=== PATIENT | male | born 1980 | race Caucasian/White ===

== ENCOUNTER 2020-10-21 19:45 | Emergency (ER) | payer MEDICAID ==
--- NOTE | 2020-10-21 19:52 | EDM.PDOC ---
ED HPI GENERAL MEDICAL PROBLEM - General Chief Complaint: Upper Extremity Injury/Pain Stated Complaint: LACERATION Time Seen by Provider: 10/21/20 19:52 Source of Information: Reports: Patient History Limitations: Reports: No Limitations - History of Present Illness INITIAL COMMENTS - FREE TEXT/NARRATIVE: Working on his stove removing the door when the hinge with it spring retainer came out causing laceration to the base of the right thumb and thenar web. Bleeding at that time controlled with direct pressure. Denies any other involvement and is up-to-date on tetanus status. Onset: Today, Sudden Duration: Minutes: Right Hand Pain Score (Numeric/FACES): 4 - Related Data Allergies Allergy/AdvReac Type Severity Reaction Status Date / Time No Known Drug Allergies Allergy Other Verified 10/21/20 19:51 Home Meds: Home Meds . [No Known Home Meds] 10/21/20 [History] Past Medical History - Past Health History Medical/Surgical History: Denies Medical/Surgical History (General issues with a laceration of the finger 5 years ago) Social & Family History - Family History Family Medical History: No Pertinent Family History ED ROS GENERAL - Review of Systems Review Of Systems: Comprehensive ROS is negative, except as noted in HPI. ED EXAM, GENERAL - Physical Exam Exam: See Below Free Text/Narrative:: Alert, oriented no acute distress. There is no cyanosis nor pallor. Respiratory status is clear with no auscultated abnormalities. Cardiac is regular radial pulse correlates. Dressing is been placed with Coban in a [id number] fashion to the right thumb. This is removed showing a 1 cm laceration in the thenar web with no active bleeding and no tendon involvement. He is able to move his thumb in in opposition lateral medial posterior anterior as well as in circular fashion with no discomfort nor disruption of continuity. CMS is intact. Discuss lidocaine application by infiltration and suturing to which he agrees ED GENERAL MEDICAL PROCEDURES - Laceration/Wound Repair Right Proximal Digit - 1st (Thumb) Lac/wound length in cm: 1 Appearance: Subcutaneous, Clean Distal NVT: Neuro & Vascular Intact, No Tendon Injury Anesthetic Type: Local Local Anesthesia - Lidocaine (Xylocaine): 2% with EPI Local Anesthetic Volume: 2cc Skin Prep: Chlorhexidine (Hibiciens) Exploration/Debridement/Repair: Wound Explored, In a Bloodless Field, Explored to Base Suture Size: 4-0 # of Sutures: 4 Suture Type: Nylon Sterile Dressing Applied: Provider Course - Vital Signs Last Recorded V/S: Last Vital Signs Temp 98.2 F 10/21/20 19:56 Pulse 96 10/21/20 19:56 Resp 18 10/21/20 19:56 BP 134/90 10/21/20 19:56 Pulse Ox 96 10/21/20 19:56 - Orders/Labs/Meds Orders: Active Orders 24 hr Category Date Time Status Lidocaine 2% w/EPINEPHrine [Xylocaine-MPF 2%-EPI 1:200, Med 10/21/20 20:00 Active 000] 2 ml INFILT ASDIRECTED Medication Orders Lidocaine/Epinephrine (Lidocaine 2% With Epinephrine 1:200,000 20 Ml Sdv) 2 ml INFILT ASDIRECTED BLU Last Admin: 10/21/20 20:29 Dose: 2 ml Documented by: SHARRON Meds: Medications Generic Name Dose Route Start Last Admin Trade Name Freq PRN Reason Stop Dose Admin Lidocaine/Epinephrine 2 ml 10/21/20 20:00 10/21/20 20:29 Lidocaine 2% With Epinephrine 1:200,000 20 Ml Sdv INFILT 2 ml ASDIRECTED BLU Administration Discontinued Medications Generic Name Dose Route Start Last Admin Trade Name Freq PRN Reason Stop Dose Admin Lidocaine/Epinephrine Confirm 10/21/20 19:53 10/21/20 20:04 Lidocaine 2% With Epinephrine 1:200,000 20 Ml Sdv Administered 10/21/20 19:54 Not Given Dose 20 ml .ROUTE .STK-MED ONE Neomycin/Polymyxin/Bacitracin 1 each 10/21/20 19:54 10/21/20 20:31 Bacitracin/Neomycin/Polymyxin B Oint 0.9 Gm U/D Packet TOP 10/21/20 19:55 1 each Q1H ONE Administration Neomycin/Polymyxin/Bacitracin Confirm 10/21/20 19:54 10/21/20 20:04 Bacitracin/Neomycin/Polymyxin B Oint 0.9 Gm U/D Packet Administered 10/21/20 19:55 Not Given Dose 1 each .ROUTE .STK-MED ONE Departure - Departure Time of Disposition: 20:28 Disposition: Home, Self-Care 01 Condition: Good Clinical Impression: Laceration of thumb without complication Qualifiers: Encounter type: initial encounter Laterality: right Qualified Code(s): S61.011A - Laceration without foreign body of right thumb without damage to nail, initial encounter - Discharge Information *PRESCRIPTION DRUG MONITORING PROGRAM REVIEWED*: Not Applicable *COPY OF PRESCRIPTION DRUG MONITORING REPORT IN PATIENT GUY: Not Applicable Instructions: Laceration Care, Adult, [id number] Forms: ED Department Discharge Additional Instructions: You have had stitches placed at the base of your thumb. These will stay in for 10 days. You need to avoid soaking or swimming until sutures are removed. Keep this is clean and dry as possible, and if getting soiled, you need to change the Band-Aid or dressing that you have over it. Keep covered when working in any non-clean environment. You will need to restrict your use of the right hand to allow adequate time for the laceration to heal. You may contact the facility here for the paperwork for financial application on Friday. Contact clinic of your choice for suture removal in 10 days. Sepsis Event Note (ED) - Focused Exam Vital Signs: Vital Signs Temp Pulse Resp BP Pulse Ox 10/21/20 19:56 98.2 F 96 18 134/90 96 - Problem List & Annotations (1) Laceration of thumb without complication SNOMED Code(s): 563362432, 262590284 Code(s): S61.019A - LACERATION W/O FOREIGN BODY OF THMB W/O DAMAGE TO NAIL, INIT Status: Acute Priority: High Qualifiers: Encounter type: initial encounter Laterality: right Qualified Code(s): S61.011A - Laceration without foreign body of right thumb without damage to nail, initial encounter - Problem List Review Problem List Initiated/Reviewed/Updated: Yes - My Orders Last 24 Hours: My Active Orders 10/21/20 20:00 Lidocaine 2% w/EPINEPHrine [Xylocaine-MPF 2%-EPI 1:200,000] 2 ml INFILT ASDIRECTED - Assessment/Plan Last 24 Hours: My Active Orders 10/21/20 20:00 Lidocaine 2% w/EPINEPHrine [Xylocaine-MPF 2%-EPI 1:200,000] 2 ml INFILT ASDIRECTED Plan: You have had stitches placed at the base of your thumb. These will stay in for 10 days. You need to avoid soaking or swimming until sutures are removed. Keep this is clean and dry as possible, and if getting soiled, you need to change the Band-Aid or dressing that you have over it. Keep covered when working in any non-clean environment. You will need to restrict your use of the right hand to allow adequate time for the laceration to heal. You may contact the facility here for the paperwork for financial application on Friday. Contact clinic of your choice for suture removal in 10 days.
[2020-10-21] MEDS ORDERED: Lidocaine 2% with EPINEPHrine 1:200,000 20 ML SDV ONE (19:53)
[2020-10-21] MEDS ORDERED: Bacitracin/Neomycin/Polymyxin B Oint 0.9 GM U/D Packet ONE (19:54)
[2020-10-21] MEDS ORDERED: Bacitracin/Neomycin/Polymyxin B Oint 0.9 GM U/D Packet TOP ONE (19:54)
[2020-10-21] MEDS ORDERED: Lidocaine 2% with EPINEPHrine 1:200,000 20 ML SDV INFILT SCH (20:00)
== END 2020-10-21 20:40 | disposition home or self-care (01) ==
LOC: KA.ED 19:45
DX: S61.011A Laceration without foreign body of right thumb without damage to nail, initial encounter (principal); W22.8XXA Striking against or struck by other objects, initial encounter
CPT/HCPCS: 12001; 99282-25; 99283

== ENCOUNTER 2020-11-22 17:43 | Emergency (ER) | payer MEDICAID ==
[2020-11-22] MEDS ORDERED: Sodium Chloride 0.9% 1,000 ML IV ONE (17:47)
[2020-11-22] MEDS ORDERED: Sodium Chloride 0.9% 10 ML Syringe FLUSH PRN (17:47)
--- NOTE | 2020-11-22 17:49 | EDM.PDOC ---
ED HPI GENERAL MEDICAL PROBLEM - General Chief Complaint: General Stated Complaint: VERY DIZZY, CONFUSED Time Seen by Provider: 11/22/20 17:46 Source of Information: Reports: Patient, Family - History of Present Illness INITIAL COMMENTS - FREE TEXT/NARRATIVE: Shaw, 40-year-old male, presents private vehicle accompanied by his driving him as he is experiencing extreme dizziness. This is also associated with some mild confusion. Denies headache but has visual changes slightly focus and concentration is off. Onset yesterday stated yesterday he kind of bounced off the [place] with dizziness and weakness throughout the day as he had been spending the weekend as well as Friday either at the [place] or on the roof of his home. Speaks of insect bites to the lower extremities none of which resemble Lyme disease, with no tick involvement. 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 Stat ed this came on during the night Friday morning upon awakening symptoms have developed. No noted fever chills or COVID-19 exposure. No chest pain or headaches, no shortness of breath. Onset Date: 11/21/20 Onset Time: 08:00 Duration: Day(s): Location: Reports: Head Severity: Severe Improves with: Reports: None Worsens with: Reports: Movement Context: Reports: Activity Associated Symptoms: Reports: Confusion. Denies: Chest Pain, Cough, Nausea/Vomiting - Related Data Allergies Allergy/AdvReac Type Severity Reaction Status Date / Time No Known Drug Allergies Allergy Other Verified 11/22/20 17:55 Home Meds: Home Meds . [No Known Home Meds] 10/21/20 [History] Past Medical History - Past Health History Medical/Surgical History: Denies Medical/Surgical History (General issues with a laceration of the finger 5 years ago) Social & Family History - Family History Family Medical History: No Pertinent Family History - Tobacco Use Tobacco Use Status *Q: Never Tobacco User Tobacco Use Within Last Twelve Months: No ED ROS GENERAL - Review of Systems Review Of Systems: Comprehensive ROS is negative, except as noted in HPI. ED EXAM, GENERAL - Physical Exam Exam: See Below Free Text/Narrative:: Alert, oriented with no evidence of cyanosis nor pallor. HEENT is negative discharge or deformity. There is no involvement of the auditory canals nor tympanic membranes. Nilan Barany testing is negative bilateral. He has slightly dry appearing oral mucosa. Neck is soft supple no lymphadenopathy. Thorax is clear no wheezes no crackles. Cardiac is S1 is 2 with no appreciated murmur, radial pulses correlate with apical heart rate. He is tachycardic in the low 100s during the assessment. Abdomen is soft bowel sounds are present. Moves his extremities with no discomfort. Shows me his Achilles tendon and lateral ankle region where he experienced insect/vector stings or bites which shows some mild ecchymosis with no erythema, no pustule, no vesicle formation. There is no integument disruption that one would associate with erythema migrans or other vector related findings. #1 Interpretation EKG Date: 11/22/20 Time: 18:00 Rhythm: NSR Rate (Beats/Min): 88 [place] Neck: Normal P-Wave: Present QRS: Normal ST-T: Normal QT: Normal Comparison: NA - No Prior EKG Course - Vital Signs Last Recorded V/S: Last Vital Signs Temp 97.3 F 11/22/20 17:45 Pulse 71 11/22/20 19:08 Resp 17 11/22/20 19:08 BP 124/73 11/22/20 19:08 Pulse Ox 98 11/22/20 19:08 - Orders/Labs/Meds Orders: Active Orders 24 hr Category Date Time Status EKG Documentation Completion [RC] ASDIRECTED Care 11/22/20 17:48 Active Peripheral IV Care [RC] . DIRECTED Care 11/22/20 17:47 Active Sodium Chloride 0.9% [Saline Flush] Med 11/22/20 17:47 Active 10 ml FLUSH Q8HR PRN Peripheral IV Insertion Adult [OM.PC] Routine Oth 11/22/20 17:47 Ordered EKG 12 Lead [EK] Urgent Ther 11/22/20 17:48 Ordered Medication Orders Sodium Chloride (Sodium Chloride 0.9% 10 Ml Syringe) 10 ml FLUSH Q8HR PRN PRN Reason: keep vein open Labs: Laboratory Tests 11/22/20 11/22/20 11/22/20 Range/Units 18:00 18:00 18:00 WBC 9.20 (5.00-10.00) 10^3/uL RBC 4.45 L (4.50-6.00) 10^6/uL Hgb 13.8 (13.0-17.0) g/dL Hct 39.8 L (40.0-52.0) % MCV 89.4 (82.0-92.0) fL MCH 31.0 (27.0-31.0) pg MCHC 34.7 (32.0-36.0) g/dL RDW 11.9 (11.5-14.5) % Plt Count 232 (150-400) 10^3/uL MPV 10.5 H (7.4-10.4) fL Immature Gran % (Auto) 0.1 (0.0-5.0) % Neut % (Auto) 59.2 (50.0-70.0) % Lymph % (Auto) 27.6 (20.0-40.0) % [place] % (Auto) 8.3 H (2.0-8.0) % Eos % (Auto) 4.6 H (1.0-3.0) % Baso % (Auto) 0.2 (0.0-1.0) % Neut # (Auto) 5.45 (2.50-7.00) 10^3/uL Lymph # (Auto) 2.54 (1.00-4.00) 10^3/uL [place] # (Auto) 0.76 (0.10-0.80) 10^3/uL Eos # (Auto) 0.42 H (0.10-0.30) 10^3/uL Baso # (Auto) 0.02 (0.00-0.10) 10^3/uL Immature Gran # (Auto) 0.01 (0.00-0.50) 10^3/uL Sodium 140 (136-145) mmol/L Potassium 4.2 (3.5-5.1) mmol/L Chloride 104 (98-107) mmol/L Carbon Dioxide 28.2 (21.0-32.0) mmol/L Anion Gap 12.0 (5-15) mmol/L BUN 16 (7-18) mg/dL Creatinine 0.85 (0.51-1.17) mg/dL Est Cr Clr Drug Dosing 123.04 mL/min Estimated GFR (MDRD) > 60 mL/min Glucose 108 (70-140) mg/dL Lactic Acid 1.8 (0.4-2.0) mmol/L Calcium 8.5 L (8.7-10.3) mg/dL Total Bilirubin 0.2 (0.2-1.0) mg/dL AST 14 L (15-37) U/L ALT 26 (14-63) U/L Alkaline Phosphatase 70 (46-116) U/L Total Protein 6.7 (6.4-8.2) g/dL Albumin 3.71 (3.40-5.00) g/dL Specimen Type Urine Color (YELLOW) Urine Appearance (CLEAR) Urine pH (5.0-9.0) Ur Specific [place] (1.005-1.030) Urine Protein (NEGATIVE) mg/dL Urine Glucose (UA) (NEGATIVE) mg/dL Urine Ketones (NEGATIVE) mg/dL Urine Occult Blood (NEGATIVE) Urine Nitrite (NEGATIVE) Urine Bilirubin (NEGATIVE) Urine Urobilinogen (0.2-1.0) E.U./dL Ur Leukocyte Esterase (NEGATIVE) U Hyaline Cast (Auto) Urine RBC (0-5) /HPF Urine WBC (0-5) /HPF Ur Epithelial Cells /LPF Urine Bacteria (NONE TO FEW) /HPF Urine Opiates Screen (NEGATIVE) Ur Oxycodone Screen (NEGATIVE) Urine Methadone Screen (NEGATIVE) Ur Propoxyphene Screen (NEGATIVE) Ur Barbiturates Screen (NEGATIVE) Ur Tricyclics Screen (NEGATIVE) Ur Phencyclidine Scrn (NEGATIVE) Ur Amphetamine Screen (NEGATIVE) U Methamphetamines Scrn (NEGATIVE) U Benzodiazepines Scrn (NEGATIVE) U Cocaine Metab Screen (NEGATIVE) U Marijuana (THC) Screen (NEGATIVE) 11/22/20 11/22/20 Range/Units 18:20 18:20 WBC (5.00-10.00) 10^3/uL RBC (4.50-6.00) 10^6/uL Hgb (13.0-17.0) g/dL Hct (40.0-52.0) % MCV (82.0-92.0) fL MCH (27.0-31.0) pg MCHC (32.0-36.0) g/dL RDW (11.5-14.5) % Plt Count (150-400) 10^3/uL MPV (7.4-10.4) fL Immature Gran % (Auto) (0.0-5.0) % Neut % (Auto) (50.0-70.0) % Lymph % (Auto) (20.0-40.0) % [place] % (Auto) (2.0-8.0) % Eos % (Auto) (1.0-3.0) % Baso % (Auto) (0.0-1.0) % Neut # (Auto) (2.50-7.00) 10^3/uL Lymph # (Auto) (1.00-4.00) 10^3/uL [place] # (Auto) (0.10-0.80) 10^3/uL Eos # (Auto) (0.10-0.30) 10^3/uL Baso # (Auto) (0.00-0.10) 10^3/uL Immature Gran # (Auto) (0.00-0.50) 10^3/uL Sodium (136-145) mmol/L Potassium (3.5-5.1) mmol/L Chloride (98-107) mmol/L Carbon Dioxide (21.0-32.0) mmol/L Anion Gap (5-15) mmol/L BUN (7-18) mg/dL Creatinine (0.51-1.17) mg/dL Est Cr Clr Drug Dosing mL/min Estimated GFR (MDRD) mL/min Glucose (70-140) mg/dL Lactic Acid (0.4-2.0) mmol/L Calcium (8.7-10.3) mg/dL Total Bilirubin (0.2-1.0) mg/dL AST (15-37) U/L ALT (14-63) U/L Alkaline Phosphatase (46-116) U/L Total Protein (6.4-8.2) g/dL Albumin (3.40-5.00) g/dL Specimen Type Urincc Urine Color Yellow (YELLOW) Urine Appearance Clear (CLEAR) Urine pH 6.0 (5.0-9.0) Ur Specific [place] >= 1.030 (1.005-1.030) Urine Protein Negative (NEGATIVE) mg/dL Urine Glucose (UA) Negative (NEGATIVE) mg/dL Urine Ketones Negative (NEGATIVE) mg/dL Urine Occult Blood Trace-intact H (NEGATIVE) Urine Nitrite Negative (NEGATIVE) Urine Bilirubin Negative (NEGATIVE) Urine Urobilinogen 0.2 (0.2-1.0) E.U./dL Ur Leukocyte Esterase Negative (NEGATIVE) U Hyaline Cast (Auto) Rare Urine RBC 5-10 H (0-5) /HPF Urine WBC 0-5 (0-5) /HPF Ur Epithelial Cells Rare /LPF Urine Bacteria Rare (NONE TO FEW) /HPF Urine Opiates Screen Negative (NEGATIVE) Ur Oxycodone Screen Negative (NEGATIVE) Urine Methadone Screen Negative (NEGATIVE) Ur Propoxyphene Screen Negative (NEGATIVE) Ur Barbiturates Screen Negative (NEGATIVE) Ur Tricyclics Screen Negative (NEGATIVE) Ur Phencyclidine Scrn Negative (NEGATIVE) Ur Amphetamine Screen Negative (NEGATIVE) U Methamphetamines Scrn Negative (NEGATIVE) U Benzodiazepines Scrn Negative (NEGATIVE) U Cocaine Metab Screen Negative (NEGATIVE) U Marijuana (THC) Screen Negative (NEGATIVE) Meds: Medications Generic Name Dose Route Start Last Admin Trade Name Freq PRN Reason Stop Dose Admin Sodium Chloride 10 ml 11/22/20 17:47 Sodium Chloride 0.9% 10 Ml Syringe FLUSH Q8HR PRN keep vein open Discontinued Medications Generic Name Dose Route Start Last Admin Trade Name Freq PRN Reason Stop Dose Admin Sodium Chloride 1,000 mls @ 999 mls/hr 11/22/20 17:47 11/22/20 18:14 Normal Saline IV 11/22/20 18:47 999 mls/hr .BOLUS ONE Administration - Re-Assessments/Exams Free Text/Narrative Re-Assessment/Exam: 11/22/20 18:51 Extremely concentrated urine is noted with slight improvement in his lightheaded dizziness after receiving one half of the liter of normal saline. Heart rate has come down nicely into the 75-80 range versus the tachycardia that was first noted on his arrival prior to fluid administration. Free Text/Narrative Re-Assessment/Exam: 11/22/20 19:12 Heart rate came down into the lower 70s with symptoms resolving with a liter of fluid infused. Departure - Departure Time of Disposition: 19:03 Disposition: Home, Self-Care 01 Condition: Good Clinical Impression: Dehydration symptoms, Dizziness - Discharge Information *PRESCRIPTION DRUG MONITORING PROGRAM REVIEWED*: Not Applicable *COPY OF PRESCRIPTION DRUG MONITORING REPORT IN PATIENT GUY: Not Applicable Referrals: Ana Lilia Parsons MD [Primary Care Provider] - Forms: ED Department Discharge Additional Instructions: You are mildly dehydrated that led to your symptoms. You need to drink more fluids on a daily basis. A good way to tell if you are drinking enough fluid is when the urine in the toilet is is light-colored as the water you are drinking. Considered drinking electrolyte substitute sports drink prior to doing strenuous heat related activity and then water during the process. Follow-up with clinic in the next week if symptoms have not resolved completely. Sepsis Event Note (ED) - Focused Exam Vital Signs: Vital Signs Temp Pulse Resp BP Pulse Ox 11/22/20 19:08 71 17 124/73 98 11/22/20 18:12 97 24 H 129/82 96 11/22/20 17:45 97.3 F 88 21 H 136/85 94 L - Problem List & Annotations (1) Dizziness SNOMED Code(s): 644906245, 688867227 Code(s): R42 - DIZZINESS AND GIDDINESS Status: Acute Current Visit: Yes (2) Malaise SNOMED Code(s): 268667560 Code(s): R53.81 - OTHER MALAISE Status: Acute Current Visit: Yes (3) Dehydration symptoms SNOMED Code(s): 448472265 Code(s): R63.8 - OTHER SYMPTOMS AND SIGNS CONCERNING FOOD AND FLUID INTAKE Status: Acute Current Visit: Yes (4) Tachycardia SNOMED Code(s): 6577816 Code(s): R00.0 - TACHYCARDIA, UNSPECIFIED Status: Resolved Priority: Medium Current Visit: Yes Annotation/Comment:: Fluid load related, dehydration symptoms resolved with fluid via IV - Problem List Review Problem List Initiated/Reviewed/Updated: Yes - My Orders Last 24 Hours: My Active Orders 11/22/20 17:47 Peripheral IV Care [RC] . DIRECTED Sodium Chloride 0.9% [Saline Flush] 10 ml FLUSH Q8HR PRN Peripheral IV Insertion Adult [OM.PC] Routine 11/22/20 17:48 EKG Documentation Completion [RC] ASDIRECTED EKG 12 Lead [EK] Urgent - Assessment/Plan Last 24 Hours: My Active Orders 11/22/20 17:47 Peripheral IV Care [RC] . DIRECTED Sodium Chloride 0.9% [Saline Flush] 10 ml FLUSH Q8HR PRN Peripheral IV Insertion Adult [OM.PC] Routine 07/07/21 17:48 EKG Documentation Completion [RC] ASDIRECTED EKG 12 Lead [EK] Urgent Plan: You are mildly dehydrated that led to your symptoms. You need to drink more fluids on a daily basis. A good way to tell if you are drinking enough fluid is when the urine in the toilet is is light-colored as the water you are drinking. Considered drinking electrolyte substitute sports drink prior to doing strenuous heat related activity and then water during the process. Follow-up with clinic in the next week if symptoms have not resolved completely.
[2020-11-22 18:26] LABS: CHLORIDE,CL 104 mmol/L (98-107)
[2020-11-22 18:28] LABS: SODIUM,NA 140 mmol/L (136-145)
--- NOTE | 2020-11-22 18:29 | CT ---
[id number] CT/CT Head WO IV EXAM: NONCONTRAST HEAD CT INDICATION: CONFUSION. COMPARISON: None. DISCUSSION: The ventricles and sulci are normal in size and configuration. The coker and white matter are normal in attenuation. No mass effect or midline shift. No acute hemorrhage or extra-axial fluid collection. No acute territorial infarct is identified. Moderate right maxillary sinus mucosal thickening. IMPRESSION: 1. Negative exam. Carlton Alamo MD 11/22/20 [id number] Thank you for allowing us to participate in the care of your patient.
--- NOTE | 2020-11-22 18:30 | CR ---
[id number] RAD/RAD Chest PA And Lateral EXAM: FRONTAL AND LATERAL CHEST INDICATION: CONFUSION. COMPARISON: None. DISCUSSION: The heart and lungs are normal in appearance. IMPRESSION: 1. Negative exam. Carlton Alamo MD 11/22/20 1230 Thank you for allowing us to participate in the care of your patient.
[2020-11-22 18:36] LABS: BARBITURATE SCREEN,URINE NEGATIVE (NEGATIVE); BENZODIAZEPINES SCREEN,URINE NEGATIVE (NEGATIVE); TCA SCREEN,URINE NEGATIVE (NEGATIVE); THC SCREEN,URINE 50 NG/ML NEGATIVE (NEGATIVE)
== END 2020-11-22 19:17 | disposition home or self-care (01) ==
LOC: KA.ED 17:43
DX: R42 Dizziness and giddiness (principal); E86.0 Dehydration
CPT/HCPCS: 36415; 70450; 71046; 80053; 80305-QW; 81001; 83605; 85025; 93005; 99284; 99284-25; J7030

== ENCOUNTER 2020-11-25 18:10 | Emergency (ER) | payer MEDICAID, OTHER ==
[2020-11-25] MEDS ORDERED: Sodium Chloride 0.9% 10 ML Syringe FLUSH PRN (18:40)
[2020-11-25] MEDS: Sodium Chloride 0.9% 1,000 ML IV ONE (19:00)
[2020-11-25 19:27] LABS: BARBITURATE SCREEN,URINE NEGATIVE (NEGATIVE); BENZODIAZEPINES SCREEN,URINE NEGATIVE (NEGATIVE); TCA SCREEN,URINE NEGATIVE (NEGATIVE); THC SCREEN,URINE 50 NG/ML NEGATIVE (NEGATIVE)
[2020-11-25 19:28] LABS: ANION GAP 15.1 mmol/L (5-15); CHLORIDE,CL 99 mmol/L (98-107); SODIUM,NA 138 mmol/L (136-145)
[2020-11-25] MEDS: Scopolamine 1.5 MG Transdermal Patch TOP ONE (19:35)
--- NOTE | 2020-11-25 20:29 | EDM.PDOC ---
ED HPI GENERAL MEDICAL PROBLEM - General Chief Complaint: General Stated Complaint: FEELS ILL Time Seen by Provider: 11/25/20 18:30 Source of Information: Reports: Patient, Family (Jolanta) History Limitations: Reports: No Limitations - History of Present Illness INITIAL COMMENTS - FREE TEXT/NARRATIVE: 40-year-old male presents to the emergency room with complaints of feeling a lightheadedness sensation of memory loss and complaints of word difficulty with his speech. He was seen 72 hours ago for complaints of vertigo and dehydration. He was given IV fluids and sent home on meclizine. He feels the vertigo or spinning of the room has resolved. He has tried to take it easy but has not been on complete rest since this time. And presents to the emergency room with the current above-mentioned symptoms. He did have a CT scan of his brain at his last visit which was unremarkable 72 hours ago. He had a Lyme disease test but has not been tested for West Nile. He denies any significant history of thyroid disorder. Although he states that he was on lithium as a child for a bipolar disorder. He does not take any medications regularly at this point. He is not experience any chest pain shortness of breath, no fever or chills, no abdominal complaints, and no urinary complaints. He has been drinking 3-5 bottles of water daily since his last ER visit. Patient states that he newly has moved to the area within the last 8weeks. He has reconnected with his fisam whom they have a child together 20 some years ago which the daughter now lives in [place]. They wanted to move closer to her and and recently moved to the [place], [place]. He reports a long history of tobacco and pot use. He smoked both daily for 30+ years and recently quit 6 weeks ago. He also has recently quit drinking. He did report verbally he was a fairly heavy drinker drank about a half a liter of crowned nightly and subsequently quit drinking altogether 3 weeks ago. He is a very heavy caffeinated coffee drinker and also has decrease his intake of this he would drink 1 pot during the daily during the week and up to 2 pots of coffee during the weekend he is now down to just drinking 1 cup a day. He feels he has not gone through any withdrawal symptoms. He denies any current use of tobacco, marijuana, alcohol. Onset: Gradual Onset Date: 11/22/20 Duration: Day(s):, Recurring Location: Reports: Generalized Quality: Reports: Other Severity: Moderate Improves with: Reports: Rest Worsens with: Reports: Movement Context: Reports: Activity Associated Symptoms: Denies: Confusion, Chest Pain, Diaphoresis, Nausea/Vomiting, Seizure, Shortness of Breath, Syncope - Related Data Allergies Allergy/AdvReac Type Severity Reaction Status Date / Time No Known Drug Allergies Allergy Other Verified 11/25/20 18:34 Home Meds: Home Meds Meclizine [Antivert] 25 - 50 mg PO DAILY 11/25/20 [History] Past Medical History - Past Health History Medical/Surgical History: Denies Medical/Surgical History Other HEENT History: 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, cracked skull from when he fell out of a 2 story building window as a child Other Gastrointestinal History: exploratory surgery to abdomen when he was a young child d/t falling out of a 2 story building window Psychiatric History: Reports: ADHD, Bipolar - Infectious Disease History Infectious Disease History: Reports: None, Chicken Pox Social & Family History - Family History Family Medical History: No Pertinent Family History - Tobacco Use Tobacco Use Status *Q: Former Tobacco User Used Tobacco, but Quit: Yes Month/Year Tobacco Last Used: quit 1 month ago - Caffeine Use Caffeine Use: Reports: Coffee, Soda - Alcohol Use Days Per Week of Alcohol Use: 2 Number of Drinks Per Day: 3 Total Drinks Per Week: 6 - Recreational Drug Use Recreational Drug Use: Yes Drug Use in Last 12 Months: Yes Recreational Drug Use Frequency: Not Used In Over 1 Month ED ROS GENERAL - Review of Systems Review Of Systems: See Below Constitutional: Reports: Fatigue. Denies: Weakness, Diaphoresis, Weight Loss HEENT: Reports: Hearing Loss. Denies: Ear Discharge, Ear Pain, Eye Pain, Sinus Problem, Vertigo, Vision Change Respiratory: Reports: No Symptoms Cardiovascular: Reports: No Symptoms Endocrine: Reports: Fatigue. Denies: High Glucose, Low Glucose GI/Abdominal: Denies: Abdominal Pain, Constipation, Diarrhea, Nausea, Vomiting : Reports: No Symptoms Musculoskeletal: Reports: No Symptoms Skin: Reports: No Symptoms Neurological: Reports: Dizziness, Other (Feels slow in his speech and feels difficulty expressing or saying words.). Denies: Numbness, Paresthesia, Pre- Existing Deficit, Syncope, Tingling, Tremors, Difficulty Walking, Change in Speech, Gait Disturbance Psychiatric: Denies: Anxiety, Depression Hematologic/Lymphatic: Reports: No Symptoms Immunologic: Reports: No Symptoms ED EXAM, GENERAL - Physical Exam Exam: See Below Exam Limited By: No Limitations General Appearance: Alert, WD/WN, No Apparent Distress Eye Exam: Bilateral Eye: EOMI, PERRL Ears: Normal External Exam, Normal Canal, Normal TMs, Other (Hester and Nadia test both indicate better hearing out of his left greater than his right) Ear Exam: Bilateral Ear: Auricle Normal, Canal Normal, TM normal Nose: Normal Inspection, Normal Mucosa, No Blood Throat/Mouth: Normal Inspection, Normal Lips, Normal Teeth, Normal Gums, Normal Oropharynx, Normal Voice, No Airway Compromise, Other (Large prominent tonsils without exudate or erythema) Head: Atraumatic Neck: Normal Inspection, Supple, Non-Tender, Full Range of Motion. No: Carotid Bruit, Lymphadenopathy (L), Lymphadenopathy (R), Tender Midline, Thyromegaly Respiratory/Chest: No Respiratory Distress, Lungs Clear, Normal Breath Sounds, No Accessory Muscle Use, Chest Non-Tender Cardiovascular: Normal Peripheral Pulses, Regular Rate, Rhythm, No Edema, No JVD, No Murmur Peripheral Pulses: 2+: Carotid (L), Carotid (R), Radial (L), Radial (R), Dorsalis Pedis (L), Dorsalis Pedis (R) GI/Abdominal: Soft, Non-Tender, No Organomegaly, No Distention, No Mass Back Exam: Normal Inspection Extremities: Normal Inspection, Normal Range of Motion, Non-Tender, No Pedal Edema, Normal Capillary Refill Neurological: Alert, Oriented, CN II-XII Intact, Normal Cognition, Normal Gait, Normal Reflexes, No Motor/Sensory Deficits, Other (Romberg negative, heel-to-toe gait normal, toes are downgoing, clonus absent, Magaly's trace positive bilaterally) Psychiatric: Normal Affect, Normal Mood Skin Exam: Warm, Dry, Intact, Normal Color, No Rash Lymphatic: No Adenopathy Course - Vital Signs Last Recorded V/S: Last Vital Signs Temp 97 F 11/25/20 18:28 Pulse 75 11/25/20 20:00 Resp 20 11/25/20 18:28 BP 148/87 H 11/25/20 20:00 Pulse Ox 99 11/25/20 19:15 - Orders/Labs/Meds Orders: Active Orders 24 hr Category Date Time Status Peripheral IV Care [RC] . DIRECTED Care 11/25/20 18:41 Active [facility] [REF] Routine Lab 11/25/20 19:00 Received [facility] [REF] Routine Lab 11/25/20 19:40 Ordered Sodium Chloride 0.9% [Saline Flush] Med 11/25/20 18:40 Active 10 ml FLUSH Q8HR PRN Peripheral IV Insertion Adult [OM.PC] Routine Oth 11/25/20 18:40 Ordered Medication Orders Sodium Chloride (Sodium Chloride 0.9% 10 Ml Syringe) 10 ml FLUSH Q8HR PRN PRN Reason: keep vein open Labs: Laboratory Tests 11/25/20 11/25/20 11/25/20 Range/Units 18:50 18:50 19:00 WBC 9.97 (5.00-10.00) 10^3/uL RBC 4.88 (4.50-6.00) 10^6/uL Hgb 15.1 (13.0-17.0) g/dL Hct 43.6 (40.0-52.0) % MCV 89.3 (82.0-92.0) fL MCH 30.9 (27.0-31.0) pg MCHC 34.6 (32.0-36.0) g/dL RDW 12.1 (11.5-14.5) % Plt Count 258 (150-400) 10^3/uL MPV 10.5 H (7.4-10.4) fL Immature Gran % (Auto) 0.1 (0.0-5.0) % Neut % (Auto) 61.4 (50.0-70.0) % Lymph % (Auto) 28.2 (20.0-40.0) % [place] % (Auto) 7.7 (2.0-8.0) % Eos % (Auto) 2.1 (1.0-3.0) % Baso % (Auto) 0.5 (0.0-1.0) % Neut # (Auto) 6.12 (2.50-7.00) 10^3/uL Lymph # (Auto) 2.81 (1.00-4.00) 10^3/uL [place] # (Auto) 0.77 (0.10-0.80) 10^3/uL Eos # (Auto) 0.21 (0.10-0.30) 10^3/uL Baso # (Auto) 0.05 (0.00-0.10) 10^3/uL Immature Gran # (Auto) 0.01 (0.00-0.50) 10^3/uL Sodium (136-145) mmol/L Potassium (3.5-5.1) mmol/L Chloride (98-107) mmol/L Carbon Dioxide (21.0-32.0) mmol/L Anion Gap (5-15) mmol/L BUN (7-18) mg/dL Creatinine (0.51-1.17) mg/dL Est Cr Clr Drug Dosing mL/min Estimated GFR (MDRD) mL/min Glucose (70-140) mg/dL Calcium (8.7-10.3) mg/dL TSH, Ultra Sensitive (0.340-4.820) uIU/mL Specimen Type Urincc Urine Color Yellow (YELLOW) Urine Appearance Clear (CLEAR) Urine pH 6.0 (5.0-9.0) Ur Specific [place] 1.020 (1.005-1.030) Urine Protein Negative (NEGATIVE) mg/dL Urine Glucose (UA) Negative (NEGATIVE) mg/dL Urine Ketones Negative (NEGATIVE) mg/dL Urine Occult Blood Trace-intact H (NEGATIVE) Urine Nitrite Negative (NEGATIVE) Urine Bilirubin Negative (NEGATIVE) Urine Urobilinogen 0.2 (0.2-1.0) E.U./dL Ur Leukocyte Esterase Negative (NEGATIVE) Urine RBC 0-5 (0-5) /HPF Urine WBC 0-5 (0-5) /HPF Ur Epithelial Cells Few /LPF Urine Bacteria Few (NONE TO FEW) /HPF Urine Opiates Screen Negative (NEGATIVE) Ur Oxycodone Screen Negative (NEGATIVE) Urine Methadone Screen Negative (NEGATIVE) Ur Propoxyphene Screen Negative (NEGATIVE) Ur Barbiturates Screen Negative (NEGATIVE) Ur Tricyclics Screen Negative (NEGATIVE) Ur Phencyclidine Scrn Negative (NEGATIVE) Ur Amphetamine Screen Negative (NEGATIVE) U Methamphetamines Scrn Negative (NEGATIVE) U Benzodiazepines Scrn Negative (NEGATIVE) U Cocaine Metab Screen Negative (NEGATIVE) U Marijuana (THC) Screen Negative (NEGATIVE) 11/25/20 11/25/20 Range/Units 19:00 19:00 WBC (5.00-10.00) 10^3/uL RBC (4.50-6.00) 10^6/uL Hgb (13.0-17.0) g/dL Hct (40.0-52.0) % MCV (82.0-92.0) fL MCH (27.0-31.0) pg MCHC (32.0-36.0) g/dL RDW (11.5-14.5) % Plt Count (150-400) 10^3/uL MPV (7.4-10.4) fL Immature Gran % (Auto) (0.0-5.0) % Neut % (Auto) (50.0-70.0) % Lymph % (Auto) (20.0-40.0) % [place] % (Auto) (2.0-8.0) % Eos % (Auto) (1.0-3.0) % Baso % (Auto) (0.0-1.0) % Neut # (Auto) (2.50-7.00) 10^3/uL Lymph # (Auto) (1.00-4.00) 10^3/uL [place] # (Auto) (0.10-0.80) 10^3/uL Eos # (Auto) (0.10-0.30) 10^3/uL Baso # (Auto) (0.00-0.10) 10^3/uL Immature Gran # (Auto) (0.00-0.50) 10^3/uL Sodium 138 (136-145) mmol/L Potassium 3.6 (3.5-5.1) mmol/L Chloride 99 (98-107) mmol/L Carbon Dioxide 27.5 (21.0-32.0) mmol/L Anion Gap 15.1 H (5-15) mmol/L BUN 20 H (7-18) mg/dL Creatinine 0.95 (0.51-1.17) mg/dL Est Cr Clr Drug Dosing 110.09 mL/min Estimated GFR (MDRD) > 60 mL/min Glucose 122 (70-140) mg/dL Calcium 8.4 L (8.7-10.3) mg/dL TSH, Ultra Sensitive 1.174 (0.340-4.820) uIU/mL Specimen Type Urine Color (YELLOW) Urine Appearance (CLEAR) Urine pH (5.0-9.0) Ur Specific [place] (1.005-1.030) Urine Protein (NEGATIVE) mg/dL Urine Glucose (UA) (NEGATIVE) mg/dL Urine Ketones (NEGATIVE) mg/dL Urine Occult Blood (NEGATIVE) Urine Nitrite (NEGATIVE) Urine Bilirubin (NEGATIVE) Urine Urobilinogen (0.2-1.0) E.U./dL Ur Leukocyte Esterase (NEGATIVE) Urine RBC (0-5) /HPF Urine WBC (0-5) /HPF Ur Epithelial Cells /LPF Urine Bacteria (NONE TO FEW) /HPF Urine Opiates Screen (NEGATIVE) Ur Oxycodone Screen (NEGATIVE) Urine Methadone Screen (NEGATIVE) Ur Propoxyphene Screen (NEGATIVE) Ur Barbiturates Screen (NEGATIVE) Ur Tricyclics Screen (NEGATIVE) Ur Phencyclidine Scrn (NEGATIVE) Ur Amphetamine Screen (NEGATIVE) U Methamphetamines Scrn (NEGATIVE) U Benzodiazepines Scrn (NEGATIVE) U Cocaine Metab Screen (NEGATIVE) U Marijuana (THC) Screen (NEGATIVE) Meds: Medications Generic Name Dose Route Start Last Admin Trade Name Freq PRN Reason Stop Dose Admin Sodium Chloride 10 ml 11/25/20 18:40 Sodium Chloride 0.9% 10 Ml Syringe FLUSH Q8HR PRN keep vein open Discontinued Medications Generic Name Dose Route Start Last Admin Trade Name Freq PRN Reason Stop Dose Admin Sodium Chloride 1,000 mls @ 999 mls/hr 11/25/20 18:40 11/25/20 19:00 Normal Saline IV 11/25/20 19:40 999 mls/hr .BOLUS ONE Administration Scopolamine 1.5 mg 11/25/20 19:29 11/25/20 19:35 Scopolamine 1.5 Mg Transdermal Patch TOP 11/25/20 19:30 1.5 mg ONETIME ONE Administration - Re-Assessments/Exams Free Text/Narrative Re-Assessment/Exam: 11/25/20 20:35 Patient was given 1 L of fluids and scopolamine patch was placed underneath his right ear. His neurological exam is unremarkable. Gait and balance are intact. Hearing loss is on the right side 11/25/20 20:49 Patient seems to be improved with regards to his balance at this point. Encourage follow-up development with primary care. Discussed with the patient consultation with an ENT, audiology and possibly neurology if symptoms persist. Departure - Departure Time of Disposition: 20:37 Disposition: Home, Self-Care 01 Condition: Good Clinical Impression: Lightheadedness, Dizziness, Dizziness of unknown etiology Conductive hearing loss in right ear Qualifiers: Contralateral hearing status: unrestricted hearing on contralateral side Qualified Code(s): H90.11 - Conductive hearing loss, unilateral, right ear, with unrestricted hearing on the contralateral side - Discharge Information Instructions: Labyrinthitis, [id number], Meniere Disease, Dizziness Referrals: PCP,None [Primary Care Provider] - Forms: ED Department Discharge Care Plan Goals: 1. Rest. No physical activity over the next 48 hours. 2. Continue with your oral hydration. 3. Establish primary care in your town of [place]. Recommend further work-up and evaluation with consideration of ENT and neurology consultation if your symptoms persist. 4. Return back to the ER if any symptoms such as facial droop, arm weakness, speech slurred, gait disturbance occurs in addition to headache, visual changes, syncopal episode. Sepsis Event Note (ED) - Evaluation Sepsis Screening Result: No Definite Risk - Focused Exam Vital Signs: Vital Signs Temp Pulse Resp BP Pulse Ox 11/25/20 20:00 75 148/87 H 11/25/20 19:45 76 143/83 H 11/25/20 19:30 79 135/88 11/25/20 19:15 85 141/92 H 99 11/25/20 19:08 86 130/85 97 11/25/20 18:45 90 132/85 97 11/25/20 18:30 90 124/87 96 11/25/20 18:28 97 F 81 20 125/69 95 - My Orders Last 24 Hours: My Active Orders 11/25/20 18:40 Sodium Chloride 0.9% [Saline Flush] 10 ml FLUSH Q8HR PRN Peripheral IV Insertion Adult [OM.PC] Routine 11/25/20 18:41 Peripheral IV Care [RC] . DIRECTED 11/25/20 19:00 [facility] [REF] Routine 11/25/20 19:40 [facility] [[facility]] Routine - Assessment/Plan Last 24 Hours: My Active Orders 11/25/20 18:40 Sodium Chloride 0.9% [Saline Flush] 10 ml FLUSH Q8HR PRN Peripheral IV Insertion Adult [OM.PC] Routine 11/25/20 18:41 Peripheral IV Care [RC] . DIRECTED 11/25/20 19:00 [facility] [REF] Routine 11/25/20 19:40 [facility] [[facility]] Routine Assessment:: 1. Dizziness/lightheadedness 2. Left ear hearing loss. 3. Recent episode of vertigo resolved. Plan: 1. Rest. No physical activity over the next 48 hours. 2. Continue with your oral hydration. 3. Establish primary care in your town of [place]. Recommend further work-up and evaluation with consideration of ENT and neurology consultation if your symptoms persist. 4. Return back to the ER if any symptoms such as facial droop, arm weakness, speech slurred, gait disturbance occurs in addition to headache, visual changes, syncopal episode. 5. Continue with scopolamine patch for 72 hours.
[2020-11-25 20:30] VITALS: BP 136/87; PULSE 72
== END 2020-11-25 20:29 | disposition home or self-care (01) ==
LOC: KA.ED 18:10
DX: H90.11 Conductive hearing loss, unilateral, right ear, with unrestricted hearing on the contralateral side (principal); Z87.891 Personal history of nicotine dependence
CPT/HCPCS: 80048; 80305-QW; 81001; 84443; 85025; 86788; 99284; A9270-GY; J7030

== ENCOUNTER 2021-07-28 10:06 | Emergency (ER) | payer MEDICAID, BC ==
[2021-07-28] MEDS ORDERED: Lidocaine 2% 5 ML SDV INJECT ONE (10:35)
[2021-07-28] MEDS ORDERED: Bacitracin/Neomycin/Polymyxin B Oint 0.9 GM U/D Packet TOP ONE (10:35)
== END 2021-07-28 11:50 | disposition home or self-care (01) ==
LOC: KA.ED 10:06
DX: S61.111A Laceration without foreign body of right thumb with damage to nail, initial encounter (principal); W26.0XXA Contact with knife, initial encounter; Y92.009 Unspecified place in unspecified non-institutional (private) residence as the place of occurrence of the external cause
CPT/HCPCS: 64450; 99282; 99282-25

== ENCOUNTER 2021-08-07 10:35 | Emergency (ER) | payer MEDICAID ==
[2021-08-07] MEDS: Naloxone 0.4 MG/ML Syringe IVPUSH ONE (10:35)
[2021-08-07] MEDS: Sodium Chloride 0.9% 1,000 ML IV ONE (10:35)
[2021-08-07] MEDS: EPINEPHrine 1:10,000 1 MG/10 ML Syringe IVPUSH ONE (10:39)
[2021-08-07] MEDS: AMIODARONE 150 MG/3 ML IVPUSH ONE (10:39)
[2021-08-07] MEDS: Heparin Sodium 5,000 Units/ML Vial IVPUSH ONE (10:59)
[2021-08-07] MEDS: Heparin Sodium/D5W 250 ML IV SCH (10:59)
[2021-08-07] MEDS: Clopidogrel 75 MG Tab PO ONE (11:17)
[2021-08-07] MEDS: Tenecteplase 50 MG Kit IV ONE (11:19)
[2021-08-07 11:36] LABS: BARBITURATE SCREEN,URINE NEGATIVE (NEGATIVE); BENZODIAZEPINES SCREEN,URINE NEGATIVE (NEGATIVE); TCA SCREEN,URINE NEGATIVE (NEGATIVE); THC SCREEN,URINE 50 NG/ML NEGATIVE (NEGATIVE)
[2021-08-07 11:44] LABS: ANION GAP 20.3 mmol/L (5-15); CHLORIDE,CL 101 mmol/L (98-107); SODIUM,NA 138 mmol/L (136-145)
[2021-08-07] MEDS: Naloxone 0.4 MG/ML SDV ONE (14:46)
[2021-08-07] MEDS: LORazepam 2 MG/ML SDV ONE (14:47)
[2021-08-07] MEDS: Amiodarone 150 MG/3 ML SDV IVPUSH ONE (14:57)
== END 2021-08-07 11:50 ==
LOC: KA.ED 10:35
DX: I46.9 Cardiac arrest, cause unspecified (principal); I21.3 ST elevation (STEMI) myocardial infarction of unspecified site
CPT/HCPCS: 36415; 80053; 80305-QW; 84484; 85025; 92950; 96375; 99285; 99285-25; A9270-GY; J0171; J1644; J2310; J3101; J7030